=== PATIENT | female | born 2000 | race African-American/Black ===

== ENCOUNTER 2019-02-07 21:35 | Emergency (ER) | payer OTHER ==
[~2019-02-07] VITALS: Ht 160 cm; Wt 56.7 kg
[2019-02-07 23:06] LABS: ABSOLUTE NEUTROPHILS 6.1 thou/uL (1.4-8.2); BASOPHILS 0.8 % (0.0-2.0); EOSINOPHILS 3.6 % (0.0-3.0); HEMATOCRIT 35.5 % (37.0-47.0); HEMOGLOBIN 11.8 gm/dL (12.0-15.0); LYMPHOCYTES 16.4 % (24.0-44.0); MCH 30.1 pg (26.0-34.0); MCHC 33.3 g/dL (28.0-37.0); MCV 90.5 fL (80.0-100.0); PLATELET COUNT 220 thou/uL (150-400); POLYS 72.2 % (36.0-66.0); RBC 3.92 mil/uL (4.20-5.00); RDW 13.7 % (10.5-14.5); WBC 8.5 thou/uL (4.0-11.0)
[2019-02-07 23:11] LABS: ANION GAP 7 mmol/L (7-16); BUN 10 mg/dL (7-18); CALCIUM 9.5 mg/dL (8.5-10.1); CHLORIDE 103 mmol/L (98-107); CO2 29 mmol/L (21-32); CREATININE 0.8 mg/dL (0.6-1.0); GLUCOSE 84 mg/dL (74-106); POTASSIUM 3.7 mmol/L (3.5-5.1); SODIUM 139 mmol/L (136-145)
[2019-02-07 23:19] LABS: MAGNESIUM 1.8 mg/dL (1.8-2.4); TROPONIN-I <0.06 ng/mL (<0.06)
[2019-02-08 00:15] VITALS: BP 114/76
--- NOTE | 2019-02-08 09:32 | EKG ---
[place] [address] [address] [facility] [place] [address] ELECTROCARDIOGRAM REPORT Name: CATARINO BETANCOURT Room #: DEP BLAKE Cardoso#: [id number] ������������������ Admission: 02/07/19 ������������������ Attend Phys: Discharge: 02/08/19 ������������������ Date of : [birth year] Report #: [id number] ����������������������������������������������������������������� [id number] THIS REPORT FOR: //name// [facility] ED Test Date: 2019-02-07 Test Time: 22:40:27 Pat Name: CATARINO BETANCOURT Department: Room: Gender: F [employer]: CHEN : 2000 Requested By: Oscar Carlin Order Number: [id number] MD: Dennis Martinez Measurements Intervals Joice Rate: 73 P: 80 NM: 165 QRS: 67 QRSD: 76 T: 29 QT: 365 QTc: 403 Interpretive Statements Sinus rhythm Normal tracing No previous ECG available for comparison Electronically Signed On 02-08-2019 9:32:40 CDT by Dennis Martinez [email or web address] ��������������������������������������������� <ELECTRONICALLY SIGNED> ���������������������������������������� By: Dennis Martinez MD, [facility] ��������������������������������������������� 02/08/19 0932 2240 2240 Dennis Martinez MD, FACC /EPI
== END 2019-02-08 00:16 | disposition home or self-care (01) ==
LOC: ER 21:35
PROVIDERS: Emergency Medicine
DX: R42 Dizziness and giddiness (principal)